=== PATIENT | female | born 1965 | race African-American/Black ===

== ENCOUNTER 2017-03-14 07:57 | Emergency (ER) | payer BC, OTHER ==
[~2017-03-14] VITALS: Ht 170.2 cm; Wt 80.0 kg
[~2017-03-14 07:57] MED LIST: ALBU8I INH; BENZ100C4 PO; FLUC150T PO; ST JTAB PO
[2017-03-14 07:58] VITALS: BP 114/72; PULSE 18; PULSE 50; RESP 15; TEMP 98.4; O2SAT 98
[2017-03-14] MEDS ORDERED: DICL1GEL7 TOPICAL (08:12)
[2017-03-14] MEDS ORDERED: VENTAER INH (08:12)
[2017-03-14] MEDS ORDERED: predniSONE 50 MG TAB PO ONE (08:15)
[2017-03-14] MEDS ORDERED: AZITHROMYCIN 250 MG TAB PO ONE (08:15)
--- NOTE | 2017-03-14 08:20 | PD ---
HPI Chief Complaint: Respiratory Symptoms Time Seen by Provider: 08:08 Travel History International Travel<30 days: No Contact w/Intl Traveler<30days: No Traveled to known affect area: No History of Present Illness HPI This is a 51-year-old female who is otherwise quite healthy who presents to the emergency department with a cough that going on for one month, intermittent, moderate severity associated with some hemoptysis. She denies any purulent sputum production, denies any fevers or chills and she says her chest feels tight. She says her doctor put her on an albuterol inhaler but that has not been helping. She has no history of smoking. [facility] Past Medical History Medical History: Denies Significant Hx ?: Not Past Surgical History Surgical History: No Previous Surgery Social History Alcohol Use: No Tobacco Use: No Substance Use: No Allergies-Medications (Allergen,Severity, Reaction): Coded Allergies: No Known Allergies (Unverified , 02/13/15) Reported Meds & Prescriptions Reported Meds & Active Scripts Active Reported Diclofenac Topical 1% Gel 1 Applic TOPICAL QID Ventolin Hfa 18 GM Inh (Albuterol Sulfate) 90 Mcg/Act Aer 2 Puff INH Q4-6H PRN Review of Systems Except as stated in HPI: all other systems reviewed are Neg Physical Exam Narrative GENERAL:Well appearing, no acute distress SKIN: Focused skin assessment warm and dry. HEAD: Atraumatic. Normocephalic. EYES: Pupils equal and round. No injection or drainage. ENT: Moist mucous membranes NECK: Trachea midline. CARDIOVASCULAR: Regular rate and rhythm. No murmur appreciated. No peripheral edema. RESPIRATORY: Rales in the right lower lung field, wheezing with cough GASTROINTESTINAL: Abdomen soft, non-tender, nondistended. MUSCULOSKELETAL: No obvious deformities. NEUROLOGICAL: Awake and alert. No obvious cranial nerve deficits. Moving all extremities. PSYCHIATRIC: Appropriate mood and affect; insight and judgment normal. Data Data Last Documented VS Vital Signs Date Time Temp Pulse Resp B/P (MAP) Pulse Ox O2 Delivery O2 Flow Rate FiO2 03/14/17 07:58 98.4 50 15 114/72 (86) 98 Orders Orders Chest, Pa & Lat (03/14/17 ) Prednisone (Deltasone) (03/14/17 08:15) Azithromycin (Zithromax) (03/14/17 08:15) Albuterol-Ipratropium Neb (Duoneb Neb) (03/14/17 08:30) MDM Medical Decision Making Medical Screen Exam Complete: Yes Emergency Medical Condition: Yes Interpretation(s) Afebrile, bradycardic, normotensive Differential Diagnosis Bronchitis, asthma, congestive heart failure, pneumonia, pulmonary embolism Narrative Course This is a 51-year-old female who presents to the emergency department with 1 month of cough that's been worsening over the past several days. She has a benign exam and is 100% on room air. Chest x-ray is unremarkable and EKG I think patient can be treated for acute bronchitis and should follow up with her primary care physician for more advanced imaging if her cough doesn't resolve. Patient will be discharged home. Diagnosis Primary Impression: Bronchitis Patient Instructions: General Instructions Additional Instructions: If you develop severe shortness of breath, chest pain, or difficulty breathing return to the emergency department. Use albuterol every 4 hours for the next 2 days. Then use as needed for wheezing. Complete your course of steroids. Complete your course of antibiotics. Follow up with your primary care physician in 2-3 days if your symptoms have not improved. Med/Other Pt SpecificInfo: Prescription(s) given Scripts Prednisone (Prednisone) 20 Mg Tab 40 MG PO DAILY for 4 Days, TAB 0 Refills Prov: Maria Guadalupe Valerio MD 03/14/17 Azithromycin (Azithromycin) 250 Mg Tab 250 MG PO DAILY for Infection for 4 Days, TAB 0 Refills Prov: Maria Guadalupe Valerio MD 03/14/17 Disposition: 01 DISCHARGE HOME Condition: Stable Maria Guadalupe Valerio MD Mar 14, 2017 08:20
[2017-03-14] MEDS ORDERED: RESP: ALBUTEROL 2.5 MG/IPRATROPIUM 0.5 MG NEB (SCH) NEB ONE (08:30)
--- NOTE | 2017-03-14 08:40 | RADRPT ---
EXAM DATE/TIME: 03/14/2017 08:38 [facility] COMPARISON: CHEST SINGLE AP, August 13, 2013, 23:08. INDICATIONS : Cough, Hemoptysis MEDICAL HISTORY : None. SURGICAL HISTORY : None. ENCOUNTER: Initial ACUITY: 2 days PAIN SCORE: 0/10 LOCATION: Bilateral Chest FINDINGS: PA and lateral views of the chest demonstrate the lungs to be symmetrically aerated without evidence of mass, infiltrate or effusion. The cardiomediastinal contours are unremarkable. Osseous structure s are intact. CONCLUSION: No acute disease. Jani Moody MD on March 14, 2017 at 8:38 Board Certified Radiologist. This report was verified electronically.
[2017-03-14] MEDS ORDERED: PRED20 PO (08:57)
[2017-03-14] MEDS ORDERED: AZIT250T3 PO (08:57)
--- NOTE | 2017-03-15 13:52 | EKG ---
Date Performed: 03/14/2017 Time Performed: 08:46:04 PTAGE: 51 years EKG: SINUS BRADYCARDIA BORDERLINE ECG NO PREVIOUS TRACING DOCTOR: Claire Branch Interpretating Date/Time 03/15/2017 13:51:05
== END 2017-03-14 11:11 | disposition home or self-care (01) ==
LOC: NEPC 07:57
DX: J40 Bronchitis, not specified as acute or chronic (principal); R00.1 Bradycardia, unspecified
CPT/HCPCS: 71020; 93005; 94664; 99283; J7512